=== PATIENT | male | born 1960 | race Two or more races ===

== ENCOUNTER 2017-07-26 15:38 | Emergency (ER) | payer OTHER ==
[~2017-07-26] VITALS: Ht 180.3 cm; Wt 109.2 kg
[2017-07-26] MEDS ORDERED: LINA5TAB PO (18:31)
[2017-07-26] MEDS ORDERED: CARB1TAB47 PO (18:31)
[2017-07-26] MEDS ORDERED: METF500T4 PO (18:31)
[2017-07-26] MEDS ORDERED: TRAZ100T15 PO (18:31)
[2017-07-26] MEDS ORDERED: BUSP10TA PO (18:31)
[2017-07-26] MEDS ORDERED: FLUV100T2 PO (18:31)
[2017-07-26] MEDS ORDERED: LOVA20TA2 PO (18:31)
[2017-07-26 18:58] VITALS: BP 133/87
== END 2017-07-26 19:25 | disposition home or self-care (01) ==
LOC: ED 18:45
DX: E11.9 Type 2 diabetes mellitus without complications (principal)
CPT/HCPCS: 99283; J7512

== ENCOUNTER → 2018-07-08 | Outpatient (CLI) | payer OTHER ==
[~2018-07-08] MED LIST: BUSP10TA PO; CARB1TAB47 PO; FLUV100T2 PO; LINA5TAB PO; LOVA20TA2 PO; METF500T5 PO; REGADENOSON 0.4 MG/5 ML SYRINGE ONE; TRAZ-137 PO
== END | disposition home or self-care (01) ==
LOC: CFH 12:24
PROVIDERS: ATTEND Family Medicine
DX: R06.09 Other forms of dyspnea (principal)
CPT/HCPCS: 78452; 93017; A9502; J2785